=== PATIENT | female | born 1990 | race Caucasian/White ===

== ENCOUNTER 2023-03-15 09:19 | Inpatient (IN) | payer MEDICAID ==
[~2023-03-15] VITALS: Ht 157.5 cm; Wt 73.5 kg
[~2023-03-15 09:19] MED LIST: CEPH250C PO; SULF1TAB48 PO
[2023-03-15 09:20] VITALS: BP_SYST 128; PULSE 107; RESP 19; TEMP 98.2; O2SAT 99
[2023-03-15] MEDS ORDERED: NS 1000 ML IV.SOLN IV ONE (09:45)
[2023-03-15] MEDS ORDERED: MORPHINE 2 MG/ML INJ. SYRINGE IVP ONE (09:45)
[2023-03-15 10:02] LABS: BASOPHILS # (AUTO) 0.1 K/uL (0.0-0.2); BASOPHILS % (AUTO) 0.8 % (0.0-2.0); EOSINOPHILS # (AUTO) 0.2 K/uL (0.0-0.4); EOSINOPHILS % (AUTO) 3.2 % (0.0-4.0); HEMATOCRIT 45.5 % (36-48); HEMOGLOBIN 14.7 g/dL (12.0-16.0); LYMPHOCYTES # (AUTO) 2.6 K/uL (1.0-5.5); LYMPHOCYTES % (AUTO) 41.5 % (20.5-51.5); MEAN CORPUSCULAR HEMOGLOBIN 29 pg (27-31); MEAN CORPUSCULAR HGB CONC 32 % (32-36); MEAN CORPUSCULAR VOLUME 89 fL (79.0-98.0); MONOCYTES # (AUTO) 0.3 K/uL (0.0-1.0); MONOCYTES % (AUTO) 4.4 % (1.7-9.3); NEUTROPHILS # (AUTO) 3.1 K/uL (1.8-7.7); NEUTROPHILS % (AUTO) 50.1 % (40.0-70.0); PLATELET COUNT (AUTO) 408 K/uL (130-430); RED BLOOD CELL COUNT(AUTO) 5.12 MIL/uL (4.2-6.2); RED CELL DISTRIBUTION WIDTH 13.2 % (9.0-15.0); WHITE BLOOD COUNT (AUTO) 6.2 K/uL (4.8-10.8)
[2023-03-15 10:10] LABS: ANION GAP 8 (5-15); CALCIUM 8.4 mg/dL (8.4-11.0); CARBON DIOXIDE 27 mmol/L (23-29); CHLORIDE 100 mmol/L (98-107); CREATININE 0.88 mg/dL (0.55-1.30); GFR AFRICAN AMERICAN 95 mL/min (>90); GLUCOSE 113 mg/dL (74-106); POTASSIUM 4.2 mmol/L (3.5-5.1); SODIUM SERUM 135 mmol/L (136-145); UREA NITROGEN, BLOOD 12 mg/dL (8-21)
[2023-03-15 10:12] LABS: GFR NON AFRICAN-AMERICAN 79 mL/min (>90)
[2023-03-15 10:24] LABS: ALANINE AMINOTRANSFERASE 45 U/L (12-78); ALBUMIN 4.2 g/dL (3.4-4.8); ASPARTATE AMINOTRANSFERASE 19 U/L (10-37); TOTAL BILIRUBIN 0.4 mg/dL (0.0-1.0)
[2023-03-15] MEDS ORDERED: PIPERACILLIN/TAZO 4.5 GM in NS 100 ML IV ONE (10:45)
[2023-03-15 11:03] LABS: BILIRUBIN,URINE NEGATIVE (NEGATIVE); BLOOD, URINE 3+ (NEGATIVE); CLARITY/URINE CLEAR (CLEAR); COLOR,URINE YELLOW (YELLOW); GLUCOSE,URINE NEGATIVE (NEGATIVE); KETONES,URINE NEGATIVE (NEGATIVE); LEUKOCYTE ESTERASE ,URINE NEGATIVE (NEGATIVE); NITRITE, URINE NEGATIVE (NEGATIVE); PROTEIN URINE NEGATIVE (NEGATIVE); UROBILINOGEN,URINE 0.2 (0.2-1.0)
[2023-03-15 11:22] LABS: BACTERIA,URINE RARE /HPF (None Seen); WBC,URINE 0-3 /HPF (0-3)
[2023-03-15] MEDS ORDERED: VANCOMYCIN HCL 1,250 MG in NS 250 ML IV ONE (12:00)
[2023-03-15] MEDS ORDERED: MORPHINE 4 MG INJ. 4 MG/ML VIAL IVP PRN (14:15)
[2023-03-15] MEDS ORDERED: TEMAZEPAM 15 MG CAPSULE PO PRN (14:45)
[2023-03-15] MEDS ORDERED: ONDANSETRON HCL 4 MG/2 ML VIAL IVP PRN (14:45)
[2023-03-15] MEDS ORDERED: ACETAMINOPHEN 325 MG TABLET PO PRN (15:00)
[2023-03-15] MEDS ORDERED: KETOROLAC TROMETHAMINE 30 MG VIAL IVP PRN (15:00)
[2023-03-15] MEDS: PIPERACILLIN/TAZO 3.375/DEX-IS 50 ML IV SCH (18:12)
[2023-03-15 20:42] VITALS: BP_SYST 102; PULSE 71; RESP 18; TEMP 98.2
[2023-03-15 23:55] VITALS: O2SAT 96
[2023-03-16] VITALS: BP_SYST 100; PULSE 67; RESP 18; TEMP 98; O2SAT 96
[2023-03-16] MEDS: PIPERACILLIN/TAZO 3.375/DEX-IS 50 ML IV SCH ×4 (00:04→18:00)
[2023-03-16 08:00] VITALS: BP_SYST 138; PULSE 75; RESP 18; TEMP 97.4; O2SAT 100
[2023-03-16] MEDS: ACETAMINOPHEN 325 MG TABLET PO PRN (08:31)
[2023-03-16 10:32] VITALS: O2SAT 100
[2023-03-16 12:00] VITALS: BP_SYST 126; PULSE 66; RESP 20; TEMP 98.7; O2SAT 98
[2023-03-16] MEDS ORDERED: NALOXONE HCL 0.4 MG/ML AMP (NARCAN) IVP PRN (14:45)
[2023-03-16] MEDS: HYDROcodone/ACETAMIN 10-325 MG TAB PO PRN (15:07)
[2023-03-16 16:00] VITALS: BP_SYST 105; PULSE 71; RESP 16; TEMP 98; O2SAT 100
[2023-03-16 20:00] VITALS: BP_SYST 97; PULSE 66; RESP 18; TEMP 98.1; O2SAT 99
[2023-03-17] VITALS: BP_SYST 108; PULSE 66; RESP 18; TEMP 97.9; O2SAT 99
[2023-03-17] MEDS: PIPERACILLIN/TAZO 3.375/DEX-IS 50 ML IV SCH ×4 (00:14→20:58)
[2023-03-17] MEDS: HYDROcodone/ACETAMIN 10-325 MG TAB PO PRN (00:39)
[2023-03-17 06:24] LABS: PROTHROMBIN TIME 10.7 SECS (9.5-12.5)
[2023-03-17 08:34] VITALS: BP_SYST 108; PULSE 90; RESP 17; TEMP 98.6; O2SAT 98
[2023-03-17 10:52] VITALS: O2SAT 98
[2023-03-17] MEDS ORDERED: fentaNYL CITRATE/PF 100 MCG/2 ML AMP ONE (17:25)
[2023-03-17] MEDS ORDERED: PROPOFOL 200MG/ 20ML VIAL (DIPRIVAN) IV ONE (17:25)
[2023-03-17] MEDS ORDERED: LIDOCAINE MPF 2% 20 MG/1 ML, 5 ML VIAL INH ONE (17:25)
[2023-03-17] MEDS ORDERED: GLYCOPYRROLATE 0.2 MG/ML VIAL ONE (17:25)
[2023-03-17] MEDS ORDERED: NS IRRIG SOLN 1000 ML IR ONE (17:25)
[2023-03-17] MEDS ORDERED: LIDOCAINE PF 1%, 20 MG/2 ML AMP ONE (17:25)
[2023-03-17] MEDS ORDERED: ONDANSETRON HCL 4 MG/2 ML VIAL ONE (17:25)
[2023-03-17] MEDS ORDERED: MIDAZOLAM HCL 2 MG/2 ML VIAL (VERSED) ONE (17:25)
[2023-03-17] MEDS ORDERED: METOCLOPRAMIDE HCL 10 MG/2 ML VIAL ONE (17:25)
[2023-03-17] MEDS ORDERED: ROCURONIUM BROMIDE 10 MG/ML (ZEMURON) ONE (17:25)
[2023-03-17] MEDS ORDERED: SEVOFLURANE 15 MIN GAS INH ONE (17:25)
[2023-03-17] MEDS ORDERED: SUCCINYLCHOLINE CHLORIDE 20 MG/ML(QUELICIN) ONE (17:25)
[2023-03-17] MEDS ORDERED: LR 1,000 ML IV.SOLN IV ONE (17:25)
[2023-03-17] MEDS ORDERED: NEOSTIGMINE METHYLSULFATE 1 MG/ML, 10 ML VIAL ONE (17:25)
[2023-03-17] MEDS ORDERED: HYDROmorphone 1 MG/ML INJ. CARTRIDGE IVP PRN (18:00)
[2023-03-17] MEDS ORDERED: HYDROmorphone 2 MG/ML VIAL IVP PRN (18:00)
[2023-03-17] MEDS ORDERED: KETOROLAC TROMETHAMINE 30 MG VIAL IVP PRN (18:00)
[2023-03-17] MEDS ORDERED: LR 1,000 ML IV SCH (18:00)
[2023-03-17] MEDS ORDERED: ONDANSETRON HCL 4 MG/2 ML VIAL IVP PRN (18:00)
[2023-03-17 20:00] VITALS: BP_SYST 110; PULSE 75; RESP 18; TEMP 97.3; O2SAT 94
[2023-03-17 23:58] VITALS: BP_SYST 117; PULSE 92; O2SAT 98
[2023-03-18] VITALS: BP_SYST 97; PULSE 73; RESP 16; TEMP 97.1; O2SAT 96
[2023-03-18] MEDS: PIPERACILLIN/TAZO 3.375/DEX-IS 50 ML IV SCH ×4 (01:12→17:19)
[2023-03-18 04:43] VITALS: O2SAT 98
[2023-03-18 06:08] LABS: BASOPHILS # (AUTO) 0.1 K/uL (0.0-0.2); EOSINOPHILS # (AUTO) 0.1 K/uL (0.0-0.4); EOSINOPHILS % (AUTO) 1.6 % (0.0-4.0); HEMATOCRIT 36.7 % (36-48); HEMOGLOBIN 11.8 g/dL (12.0-16.0); LYMPHOCYTES % (AUTO) 30.1 % (20.5-51.5); MEAN CORPUSCULAR HEMOGLOBIN 28 pg (27-31); MEAN CORPUSCULAR HGB CONC 32 % (32-36); MEAN CORPUSCULAR VOLUME 88 fL (79.0-98.0); MONOCYTES # (AUTO) 0.4 K/uL (0.0-1.0); MONOCYTES % (AUTO) 6.7 % (1.7-9.3); NEUTROPHILS % (AUTO) 60.6 % (40.0-70.0); PLATELET COUNT (AUTO) 303 K/uL (130-430); RED BLOOD CELL COUNT(AUTO) 4.16 MIL/uL (4.2-6.2); RED CELL DISTRIBUTION WIDTH 13.4 % (9.0-15.0); WHITE BLOOD COUNT (AUTO) 6.5 K/uL (4.8-10.8)
[2023-03-18 07:02] LABS: ALBUMIN 3.1 g/dL (3.4-4.8); CALCIUM 7.3 mg/dL (8.4-11.0); CREATININE 0.92 mg/dL (0.55-1.30); POTASSIUM 3.3 mmol/L (3.5-5.1); TOTAL BILIRUBIN 0.7 mg/dL (0.0-1.0); TOTAL PROTEIN, SERUM 6.5 g/dL (6.4-8.3)
[2023-03-18 08:30] VITALS: BP_SYST 112; PULSE 77; RESP 18; TEMP 98.2; O2SAT 98
[2023-03-18] MEDS: HYDROcodone/ACETAMIN 10-325 MG TAB PO PRN (09:07)
[2023-03-18 11:06] VITALS: O2SAT 97
[2023-03-18 12:00] VITALS: BP_SYST 109; PULSE 76; RESP 19; TEMP 97.9; O2SAT 99
[2023-03-18] MEDS ORDERED: ENOXAPARIN SODIUM 80 MG/0.8 ML SYRINGE SUBCUT ONE (14:00)
[2023-03-18] MEDS ORDERED: HYDR-3919 PO (17:55)
[2023-03-18] MEDS ORDERED: ONDANSETRON 4 MG ODT TAB PO PRN (18:00)
[2023-03-18] MEDS ORDERED: HYDROcodone/ACETAMIN 5-325 MG TAB (NORCO/ VICODIN) PO PRN (18:00)
[2023-03-18] MEDS ORDERED: NALOXONE HCL 0.4 MG/ML AMP (NARCAN) IVP PRN (18:00)
[2023-03-18] MEDS ORDERED: POTASSIUM CHLORIDE 20 MEQ TAB.PRT.SR PO ONE (18:30)
[2023-03-18] MEDS: ACETAMINOPHEN 325 MG TABLET PO PRN (19:47)
[2023-03-18 20:00] VITALS: BP_SYST 103; PULSE 77; RESP 17; TEMP 98.4; O2SAT 96
[2023-03-18] MEDS: AMOXICILLIN/POTASSIUM CLAV 875 MG TABLET PO SCH (21:22)
[2023-03-19] VITALS: BP_SYST 110; PULSE 78; RESP 17; TEMP 97.4; O2SAT 98
[2023-03-19 04:30] VITALS: O2SAT 97
[2023-03-19 07:55] VITALS: BP_SYST 108; PULSE 76; RESP 16; TEMP 97.2; O2SAT 99
[2023-03-19] MEDS ORDERED: POTASSIUM CHLORIDE 20 MEQ TAB.PRT.SR PO SCH (09:00)
[2023-03-19] MEDS ORDERED: HYDR-3917 PO (11:34)
[2023-03-19 12:00] VITALS: BP_SYST 110; PULSE 81; RESP 16; TEMP 98.1; O2SAT 99
[2023-03-19] MEDS: ACETAMINOPHEN 325 MG TABLET PO PRN (13:07)
[2023-03-19] MEDS ORDERED: NORFLURANE/HFC 245FA 103.5 ML SPRAY TP ONE (13:45)
[2023-03-19] MEDS: AMOXICILLIN/POTASSIUM CLAV 875 MG TABLET PO SCH (13:47)
[2023-03-19 14:59] VITALS: BP_SYST 110; PULSE 81; RESP 16; TEMP 98.1; O2SAT 99
== END 2023-03-19 18:10 | disposition home health service (06) | DRG 364 ==
LOC: SED 09:19 → SMU 14:00
PROVIDERS: ADMIT Internal Medicine; ATTEND Internal Medicine
PROC: 2W5 Placement, Anatomical Regions, Removal (ICD-10-PCS; 2023-03-17)
PROC: 0J990ZZ Drainage of Buttock Subcutaneous Tissue and Fascia, Open Approach (ICD-10-PCS; principal; 2023-03-17 17:51)
DX: L05.01 Pilonidal cyst with abscess (principal); I80.8 Phlebitis and thrombophlebitis of other sites; K76.0 Fatty (change of) liver, not elsewhere classified; E87.6 Hypokalemia
CPT/HCPCS: 36415; 76376; 80053; 81000; 83605; 84484; 84702; 85025; 85610-TC; 85730-TC; 86886; 86900; 86901; 87040; 87070-TC; 87075-TC; 87081; 87086; 88304; 93005; 93971; 96365; 96366; 96367; 96375; 96376; 99285; J0330; J1170; J1650; J1885; J2001; J2270; J2405; J2543; J2704; J2710; J2765; J3010; J3370; J3465; J3490; J7050; J7120